=== PATIENT | male | born 2000 | race Caucasian/White ===

== ENCOUNTER 2022-01-06 22:34 | Emergency (ER) | payer OTHER, SELFPAY ==
[2022-01-06 22:56] VITALS: BP 124/75; PULSE 118; RESP 18; TEMP 36.9; O2SAT 95; BMI 27.9
[2022-01-07 00:09] LABS: PCR FLU A POSITIVE PCR FLU A (Negative); PCR FLU B Negative PCR FLU B (Negative); PCR RSV Negative PCR RSV (Negative); SARS PCR* Negative SARS-CoV-2 (Negative)
--- NOTE | 2022-01-07 00:42 | ED.FEVER ---
HPI - Fever General Chief Complaint: Fever Stated Complaint: 104 Fever, congestion, chills, body aches Time Seen by Provider: 01/06/22 23:30 History of Present Illness HPI Narrative: Pt presents with bodyaches, malaise, fever chills and cough for the past 2 days. No rash, stiff neck or pain. Cough is nonproductive. Pt has no sick contacts. Pt describes no chest pain or shortness of breath. No abd pain. No dysuria. Pt seems to be drinking enough fluids but has a limited appetite. Related Data Home Medications Medication Instructions Recorded Confirmed cetirizine 10 mg tablet (24Hour 10 mg PO DAILY PRN 01/06/22 01/06/22 Allergy) ibuprofen 200 mg tablet (Advil) 200 mg PO Q4-6H PRN 01/06/22 01/06/22 Allergies Allergy/AdvReac Type Severity Reaction Status Date / Time No Known Drug Allergies Allergy Verified 01/06/22 23:06 Review of Systems Status of ROS Reports: 10 or more systems reviewed and unremarkable except as noted in History and below Exam Narrative Exam Narrative: EXAM GENERAL: Patient appears comfortable and well. EYES: No scleral icterus. ENT: Tympanic membranes and oropharynx normal. THYROID: no thyroid nodules or thyromegaly. LYMPH: No supraclavicular or cervical lymphadenopathy. SKIN: Visible skin seen during exam normal or with benign process only. EXT: No dependent lower extremity pedal edema. HEART: Regular rate and rhythm with no murmurs, rubs, or gallops. LUNGS: Clear to auscultation bilaterally with no crackles or wheezes. ABD: Soft, non tender, non distended. PSYCH: Good eye contact, speech is not pressured. Const Vital Signs, click to edit/add: Vital Signs - 24 hr 01/06/22 22:56 Temperature 98.5 F Pulse Rate [Pulse Oximeter] 118 H Respiratory Rate 18 Blood Pressure [Right Upper Arm] 124/75 Pulse Oximetry 95 Oxygen Delivery Method Room Air Course Course Hospital Course: Pt seen and examined. Pt tests positive for Influenza A. Exam and vitals otherwise unremarkable except for mild tachycardia. Vital Signs Vital signs: Initial Vital Signs Temperature 98.5 F 01/06/22 22:56 Temperature Source Temporal Artery Scan 01/06/22 22:56 Pulse Rate 118 H 01/06/22 22:56 Pulse Rhythm 01/06/22 22:56 Respiratory Rate 18 01/06/22 22:56 Blood Pressure 124/75 01/06/22 22:56 Blood Pressure Mean 91 01/06/22 22:56 Blood Pressure Position Sitting 01/06/22 22:56 Pulse Oximetry 95 01/06/22 22:56 Oxygen Delivery Method 01/06/22 22:56 Vital Signs Temperature 98.5 F 01/06/22 22:56 Pulse Rate 118 H 01/06/22 22:56 Respiratory Rate 18 01/06/22 22:56 Blood Pressure 124/75 01/06/22 22:56 Pulse Oximetry 95 01/06/22 22:56 Oxygen Delivery Method 01/06/22 22:56 Temperature 98.5 F 01/06/22 22:56 Pulse Rate 118 H 01/06/22 22:56 Respiratory Rate 18 01/06/22 22:56 Blood Pressure 124/75 01/06/22 22:56 Pulse Oximetry 95 01/06/22 22:56 Oxygen Delivery Method 01/06/22 22:56 MDM - Fever MDM Narrative Medical decision making narrative: Pt seen and examined. Pt tests positive for Influenza A. Exam and vitals otherwise unremarkable except for mild tachycardia. Pt will be treated with Tamiflu, Tylenol, Motrin Rest and Fluids. Differential Diagnosis Differential diagnosis: Likely fever of unknown origin, community acquired pneumonia, viral infection, sepsis and influenza Lab Data Labs: Lab Results 01/06/22 Range/Units 23:09 SARS-CoV-2 (PCR) Negative SARS-CoV-2 (Negative) Influenza Type A (PCR) POSITIVE PCR FLU A A (Negative) Influenza Type B (PCR) Negative PCR FLU B (Negative) RSV (PCR) Negative PCR RSV (Negative) Discharge Plan Discharge Clinical Impression: Influenza A Patient Disposition: Home, Self-Care Condition: Stable Instructions: Influenza (ED) Additional Instructions: Tamiflu Tyelnol Motrin Rest Fluids Activity Level: Activity as Tolerated Discharge Diet: Regular Prescriptions: No Action cetirizine [24Hour Allergy] 10 mg tablet 10 mg PO DAILY PRN ibuprofen [Advil] 200 mg tablet 200 mg PO Q4-6H PRN Stand Alone Forms: [facility] Info Instructions
--- OUTSIDE RECORDS SUMMARY | 2022-01-07 00:46 | XMS_ITS | Clinical Summary ---
:2000 Author Organization [facility] [place] [address] Care Team Providers Name Role Phone Clinic, No Pcp Or Primary Care Provider Unavailable Allergies No known active allergies Medications No known medications Active Problems No known active problems Immunizations Name Administration Dates Next Due Influenza, IIV4 12/02/2020 Influenza, IIV4 (=>6mos) MDV 12/04/2019 Social History Tobacco Use Types Packs/Day Years Used Date Never Smoker Smokeless Tobacco: Never Used Tobacco Cessation: Counseling Given: Yes Alcohol Use Standard Drinks/Week Comments Yes 3 (1 standard drink = 0.6 oz pure alcoho l) Sex Assigned at Date Recorded Not on file Obstetrics History Last Filed Vital Signs Vital Sign Reading Time Taken Comments Blood Pressure 111/71 06/22/2021 10:16 AM CDT Pulse 62 06/22/2021 10:16 AM CDT Temperature 37 ??C (98.6 ??F) 06/22/2021 10:16 AM CDT Respiratory Rate - - Oxygen Saturation 97% 06/22/2021 10:16 AM CDT Inhaled Oxygen Concentration - - Weight 95.3 kg (210 lb) 02/03/2021 9:53 AM MEDICAL RECRUITER Height - - Body Mass Index - - Plan of Treatment Health Maintenance Due Date Last Done Comments HPV series for age 9-26 (1 - 10/25/2011 Male 2-dose series) Tdap 10/25/2011 HIV for age 15-65 10/25/2015 BMI (ht and wt on same day) 2018 for age 18+ Hepatitis C screening for age 0910/24/2018 18-79 Tetanus booster 2020 COVID-19 vaccine series (4 - 03/01/2021 01/04/2021, Booster for Moderna series) 06/16/2020, 05/19/2020 Influenza for age 9-49 10/20/2021 12/02/2020, 12/04/2019 Depression screening for age 0406/15/2022 06/15/2021 12+ Meningococcal series for age Aged Out No longer eligible based 01-09 on patient's age to complete this to pic Results Not on filefrom Last 3 Months Insurance Payer Benefit Plan / Subscriber ID Effective Dates Phone Addre ss Type Group PREFERRED ONE [employer] [id number] 2020-Present [id number] MARIUM ORTIZ [id number] Care Teams [employer] Relationship Specialty Start Date End Date Clinic, No Pcp Or PCP - General 02/03/21 .
[2022-01-07 00:55] VITALS: BP 122/78; BP 124/75; PULSE 105; RESP 18; TEMP 36.9; O2SAT 95
[2022-01-07 01:15] VITALS: BP 124/75; PULSE 105; RESP 18; TEMP 36.9
== END 2022-01-07 01:15 | disposition home or self-care (01) ==
PROVIDERS: Emergency Provider Internal Medicine
DX: J09.X2 Influenza due to identified novel influenza A virus with other respiratory manifestations (principal)
CPT/HCPCS: 87502; 87634; 87635; 99283

== ENCOUNTER 2022-08-04 05:42 | Emergency (ER) | payer OTHER, SELFPAY ==
[2022-08-04 05:45] VITALS: BP 131/77; PULSE 73; RESP 18; TEMP 36.2; O2SAT 97
[2022-08-04] MEDS: OXYCODONE 5 MG TABLET PO (06:18)
[2022-08-04] MEDS: CYCLOBENZAPRINE HCL 10 MG TABLET PO (06:18)
[2022-08-04] MEDS: KETOROLAC 30 MG/ML inj 60 MG IM (06:18)
--- NOTE | 2022-08-04 06:18 | ED.GENADULT ---
HPI - General Adult General Date Seen: 08/04/22 Chief complaint: Back Injury/Pain Stated complaint: Low back pain Time Seen by Provider: 08/04/22 05:49 Source: patient Mode of arrival: ambulatory Limitations: no limitations History of Present Illness HPI narrative: Patient is a 21-year-old male went to the gym yesterday and did a back workout. There is nothing unusual about this and he left the gym feeling fine. As the day went on he became progressively more sore. His muscles feel tight likely will not relax. He has no radiation of pain down his legs. There is no acute onset of pain while he was working out. No history of back issues. He is supposed to leave today for a music camp. He took ibuprofen 400 mg once and did not feel that it helped. No bowel or bladder dysfunction. Related Data Home Medications Medication Instructions Recorded Confirmed cetirizine 10 mg tablet (24Hour 10 mg PO DAILY PRN 01/06/22 01/06/22 Allergy) ibuprofen 200 mg tablet (Advil) 200 mg PO Q4-6H PRN 01/06/22 01/06/22 Previous Rx's Medication Instructions Recorded cyclobenzaprine 10 mg tablet 5 - 10 mg (0.5 - 1 x 10 mg) PO TID 08/04/22 PRN muscle spasm #20 tabs oxycodone 5 mg tablet 5 mg PO TID PRN pain, severe #15 08/04/22 tabs Allergies Allergy/AdvReac Type Severity Reaction Status Date / Time No Known Drug Allergies Allergy Verified 01/06/22 23:06 Review of Systems Narrative: Review of systems is outlined above otherwise noted to be negative. [facility] Medical History (Updated 08/04/22 @ 06:16 by Nestor Zamorano MD) No significant past medical history Surgical History (Updated 01/07/22 @ 00:57 by Tim Geiger RN) No significant past surgical history Social History Smoking Status: Never smoker Do you use any of these nicotine containing products: None Second hand tobacco smoke exposure: No How often do you have a drink containing alcohol: never How often do you have six or more drinks on one occasion: Never AUDIT-C Alcohol total score: 0 Non-prescribed substance use: denies use Exam Narrative: Exam Narrative: Vitals noted. He is able to heel and toe walk normally. He has normal sensation in the lower extremities. Reflexes are symmetric and strong at the knees and ankles. No weakness. Range of motion is limited by muscle tightness. He is more comfortable standing any is sitting. There is palpable muscle tightness in both paraspinous columns. No palpable spasms. No midline tenderness. Const: Vital Signs, click to edit/add: Vital Signs - 24 hr 08/04/22 05:45 Temperature 97.2 F L Pulse Rate [Left P ulse Oximeter] 73 Respiratory Rate 18 Blood Pressure [Ri ght Upper Arm] 131/77 Pulse Oximetry 97 Oxygen Delivery Me thod Room Air Course Course Hospital Course: Patient was seen and examined. He is given Toradol 60 mg IM and oxycodone 5 mg orally. We discussed the natural course of low back strain as well as red flags indicating disc herniation and nerve compression. Vital Signs Vital signs: Initial Vital Signs Temperature 97.2 F L 08/04/22 05:45 Temperature Source Temporal Artery Scan 08/04/22 05:45 Pulse Rate 73 08/04/22 05:45 Pulse Rhythm Regular 08/04/22 05:45 Respiratory Rate 18 08/04/22 05:45 Blood Pressure 131/77 08/04/22 05:45 Blood Pressure Mean 95 08/04/22 05:45 Blood Pressure Position Sitting 08/04/22 05:45 Pulse Oximetry 97 08/04/22 05:45 Oxygen Delivery Method Room Air 08/04/22 05:45 Vital Signs Temperature 97.2 F L 08/04/22 05:45 Pulse Rate 73 08/04/22 05:45 Respiratory Rate 18 08/04/22 05:45 Blood Pressure 131/77 08/04/22 05:45 Pulse Oximetry 97 08/04/22 05:45 Oxygen Delivery Method Room Air 08/04/22 05:45 Temperature 97.2 F L 08/04/22 05:45 Pulse Rate 73 08/04/22 05:45 Respiratory Rate 18 08/04/22 05:45 Blood Pressure 131/77 08/04/22 05:45 Pulse Oximetry 97 08/04/22 05:45 Oxygen Delivery Method Room Air 08/04/22 05:45 Discharge Plan Discharge Clinical Impression: Strain of lumbar region Patient Disposition: Home, Self-Care Condition: Improved Additional Instructions: Relative rest, heat in the morning, ice after activity. Ibuprofen 800 mg 3 times a day with food. Flexeril 5-10 mg 3 times daily as needed for back spasms. Oxycodone 5 mg every 6 hours as needed for refractory pain. If no better over the next 3-5 days follow-up with your PCP. Prescriptions: New cyclobenzaprine 10 mg tablet 5 - 10 mg PO TID PRN (Reason: muscle spasm) Qty: 20 0RF oxycodone 5 mg tablet 5 mg PO TID PRN (Reason: pain, severe) Qty: 15 0RF No Action cetirizine [24Hour Allergy] 10 mg tablet 10 mg PO DAILY PRN ibuprofen [Advil] 200 mg tablet 200 mg PO Q4-6H PRN Follow Up/Referrals: Provider,Not a Local [Primary Care Provider] - Stand Alone Forms: [facility] Info Instructions
== END 2022-08-04 06:29 | disposition home or self-care (01) ==
LOC: ED 06:18
PROVIDERS: Emergency Provider Family Medicine
DX: S39.012A Strain of muscle, fascia and tendon of lower back, initial encounter (principal); X50.0XXA Overexertion from strenuous movement or load, initial encounter
CPT/HCPCS: 96372; 99282; 99283; 99284; A9270; J1885

== ENCOUNTER 2023-05-05 20:06 | Emergency (ER) | payer OTHER, SELFPAY ==
[2023-05-05 20:10] VITALS: BP 149/98; PULSE 104; RESP 16; TEMP 36.7; O2SAT 95; BMI 27.8
--- NOTE | 2023-05-05 20:15 | ED.WOUNDLAC ---
HPI - Wound/Laceration General Time Seen by Provider: 20:16 Date Seen: 05/05/23 Chief Complaint: Laceration/Wound Stated Complaint: Laceration right middle finger Time Seen by Provider: 05/05/23 20:15 Source: patient and RN notes reviewed Mode of arrival: ambulatory Limitations: no limitations History of Present Illness HPI narrative: Patient is presenting with ongoing bleeding on his finger. He accidentally cut it well wiping his hand in the grass, thinks he maybe cut it on a piece of glass. It has continued to bleed. This happened about 6 hours ago. Denies any numbness tingling distally in the finger. Around the cut, does complain of some numbness. Place: outdoors Patient tetanus UTD: No (Patient is not aware when his last tetanus was. There is nothing listed.) Related Data Home Medications Medication Instructions Recorded Confirmed cetirizine 10 mg tablet (24Hour 10 mg PO DAILY PRN 01/06/22 01/06/22 Allergy) ibuprofen 200 mg tablet (Advil) 200 mg PO Q4-6H PRN 01/06/22 01/06/22 Previous Rx's Medication Instructions Recorded cyclobenzaprine 10 mg tablet 5 - 10 mg (0.5 - 1 x 10 mg) PO TID 08/04/22 PRN muscle spasm #20 tabs oxycodone 5 mg tablet 5 mg PO TID PRN pain, severe #15 08/04/22 tabs Allergies Allergy/AdvReac Type Severity Reaction Status Date / Time No Known Drug Allergies Allergy Verified 01/06/22 23:06 Review of Systems Narrative: As per HPI. [facility] Medical History No significant past medical history Surgical History No significant past surgical history Social History Smoking Status: Never smoker Do you use any of these nicotine containing products: None Second hand tobacco smoke exposure: No How often do you have a drink containing alcohol: never How often do you have six or more drinks on one occasion: Never AUDIT-C Alcohol total score: 0 Non-prescribed substance use: denies use Exam Const: Vital Signs, click to edit/add: Vital Signs - 24 hr 05/05/23 20:10 Temperature 98.0 F Pulse Rate [Pulse Oximeter] 104 H Respiratory Rate 16 Blood Pressure [Le ft Upper Arm] 149/98 H Pulse Oximetry 95 Oxygen Delivery Me thod Room Air 22-year-old male is alert, interactive, ambulatory into the ED of his own accord. On the palmar surface of his right hand on the proximal finger just distal to the metacarpophalangeal joint he has a 1 cm oblique laceration. It is not actively bleeding at this time. There is no visible or palpable foreign body. He demonstrates full preserved flexion extension and neurovascular status of this finger. 2 mL of 1% plain lidocaine were used locally for anesthesia. Nursing staff then irrigated the wound. Documenting provider has reviewed patient's vital signs: yes Course Course ED Course: Did review with patient tetanus, he will have this updated. He is originally from [place], does not believe his tetanus has been recent at all. Vital Signs Vital signs: Initial Vital Signs Temperature 98.0 F 05/05/23 20:10 Temperature Source Temporal Artery Scan 05/05/23 20:10 Pulse Rate 104 H 05/05/23 20:10 Respiratory Rate 16 05/05/23 20:10 Blood Pressure 149/98 H 05/05/23 20:10 Blood Pressure Mean 115 H 05/05/23 20:10 Blood Pressure Position Sitting 05/05/23 20:10 Pulse Oximetry 95 05/05/23 20:10 Oxygen Delivery Method Room Air 05/05/23 20:10 Vital Signs Temperature 98.0 F 05/05/23 20:10 Pulse Rate 104 H 05/05/23 20:10 Respiratory Rate 16 05/05/23 20:10 Blood Pressure 149/98 H 05/05/23 20:10 Pulse Oximetry 95 05/05/23 20:10 Oxygen Delivery Method Room Air 05/05/23 20:10 Temperature 98.0 F 05/05/23 20:10 Pulse Rate 104 H 05/05/23 20:10 Respiratory Rate 16 05/05/23 20:10 Blood Pressure 149/98 H 05/05/23 20:10 Pulse Oximetry 95 05/05/23 20:10 Oxygen Delivery Method Room Air 05/05/23 20:10 Discharge Plan Discharge Clinical Impression: Finger laceration Qualifiers: Encounter type: initial encounter Finger: middle finger Damage to nail status: without damage Foreign body presence: without foreign body Laterality: right Qualified Code(s): S61.212A - Laceration without foreign body of right middle finger without damage to nail, initial encounter Patient Disposition: Home, Self-Care Condition: Stable Instructions: Care For Your Stitches (ED), Finger Laceration (ED) Additional Instructions: May wash hands and shower but should otherwise keep this wound clean and dry. Use bacitracin and bandages to keep wound clean and protected when you are out in public. If there is concern for infection, need to seek re-evaluation. Wound should be re-evaluated in about 7-10 days to assess for suture removal, can make a clinic appointment for this. Activity Level: Activity as Tolerated Prescriptions: No Action cetirizine [24Hour Allergy] 10 mg tablet 10 mg PO DAILY PRN ibuprofen [Advil] 200 mg tablet 200 mg PO Q4-6H PRN cyclobenzaprine 10 mg tablet 5 - 10 mg PO TID PRN (Reason: muscle spasm) Qty: 20 0RF oxycodone 5 mg tablet 5 mg PO TID PRN (Reason: pain, severe) Qty: 15 0RF Follow Up/Referrals: Provider,Not a Local [Primary Care Provider] - Stand Alone Forms: [facility] Info Instructions Procedures Laceration Laceration 1: Pre procedure diagnosis: Right 3rd finger laceration Post procedure diagnosis: Same Site marking: not applicable Name of person performing procedure: Romi Ornelas Site: hand (Specifically palmar surface 3rd finger) Side (If applicable): right Size (cm): 1.0 Description: linear and clean Depth: simple, single layer Local Anesthetic: lidocaine 1% Amount of anesthesia used (mL): 2 Pre-repair: wound explored, irrigated extensively and deep structures intact Skin layer closed with: other (Ethilon) Size (cm): 4-0 Number of sutures: 3 Technique: simple, interrupted Wound cleansing: sterile water Estimated blood loss (if any): none Conclusion: patient tolerated procedure
[2023-05-05] MEDS: TETANUS/DIPHTH/PERTUSSIS 0.5 ML SYRINGE IM (21:07)
[2023-05-05] MEDS: LIDOCAINE 1% MDV 2 ML INJECTION (21:12)
[2023-05-05] MEDS: BACITRACIN 0.9 GM PACKET 1 EACH TOPICAL (21:12)
[2023-05-05 21:16] VITALS: BP 135/74; PULSE 99; RESP 16; TEMP 36.7; O2SAT 95
[2023-05-05 21:20] VITALS: BP 135/74; PULSE 99; RESP 16; TEMP 36.7
== END 2023-05-05 21:20 | disposition home or self-care (01) ==
PROVIDERS: Emergency Provider Family Medicine
DX: S61.212A Laceration without foreign body of right middle finger without damage to nail, initial encounter (principal)
CPT/HCPCS: 12001; 90471; 90715; 99283; A9270